=== PATIENT | male | born 1985 | race Caucasian/White ===

== ENCOUNTER → 2017-01-05 | Outpatient (CLI) | payer BC ==
[~2017-01-05] MED LIST: CIPRODEX OTIC7.5 ML AS; CLEOCIN HCL300 MG PO; LEVAQUIN750 MG PO; PERCOCET 10-321 EACH PO
== END | disposition home or self-care (01) ==
LOC: RAD.S 17:26
DX: M79.662 Pain in left lower leg (principal); M79.89 Other specified soft tissue disorders